=== PATIENT | female | born 1940 | race Caucasian/White ===

== ENCOUNTER 2018-03-19 05:27 | Day surgery (SDC) | payer OTHER ==
[~2018-03-19] VITALS: Ht 157.5 cm; Wt 49.9 kg
--- NOTE | ~2018-03-19 | O ---
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 PROCEDURE: Evisceration of right eye with implantation of 18-mm Medpor sphere, conjunctivoplasty and temporary tarsorrhaphy. SURGEON: David Monique M.D. LYE BOILER: None. ANESTHESIA: General. COMPLICATIONS: None. 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 She presents today for surgical rehabilitation of the socket. Informed consent was obtained to include but not limited to potential risk for bleeding, infection, and the potential need for further treatment or surgery. DESCRIPTION OF PROCEDURE: The patient was taken to the operating room, where general anesthesia was administered. The right orbit was then anesthetized with Xylocaine with epinephrine mixed with Marcaine and Wydase. The eyelid margin was anesthetized with the same anesthetic mixture. The patient was subsequently prepped and draped in the usual sterile fashion. The left eye was protected with a moistened sponge. A lid speculum was placed on the right eye. A 360-degree conjunctival peritomy was performed. There was more conjunctival scarring noted than had initially been anticipated. The horizontal meridian was especially scarred back to and past the insertion of the horizontal recti. The oblique quadrants were bluntly dissected. A 15 blade was then used to make an incision 90% through the corneoscleral limbus 360 degrees. A Marialuisa scissor was then used to complete this 360 [facility] [address] [place] [address] OPERATIVE REPORT Name: AHMET CEDEÑO Room #: 150-6 [facility]..#: [id number] Admission: 03/19/18 Attend Phys: David Monique MD Discharge: Date of : 38 Report #: [id number] degrees. The corneal cap popped off and attached to the underlying uvea. An evisceration spoon was then used to separate the uvea from the underlying sclera around the entire sphere. The uveal contents were then delivered and passed off the field into a specimen container with the corneal button. The sclera was inspected and all of the uveal tissue visible was scraped out. Monopolar cautery was used to close the vascular entrances into the sclera. The cap was then soaked in antibiotic irrigation solution. The sclera was subsequently opened in an oblique fashion inferonasally and superotemporally and then opened posteriorly. An 18-mm sizing sphere fit the cup well, so an 18-mm Medpor sphere was vacuum aspirated in antibiotic irrigation solution. The Medpor sphere was then reposited into the scleral cap with the aid of an easy glide introducer. The sclera was then closed in that oblique quadrant with multiple interrupted mattress 5-0 Vicryl sutures. The conjunctiva was then undermined extensively to allow conjunctivoplasty to be accomplished. The conjunctival closure was oriented, not directly overlying the scleral closure, so as to not have two incisions overlying each other. Hemostasis was then re-achieved. The conjunctivoplasty was then closed with a running 6-0 Vicryl suture with intermittent locking bites. A medium conformer was placed on the eye. A temporary tarsorrhaphy was then fashioned from a short section of IV tubing and a double armed 5-0 nylon suture passed. Erythromycin was then placed in the socket, following which the Telfa pad was placed followed by 2 eye pads, which were held in place with silk tape and Mastisol. The patient was subsequently transported to the recovery area, having tolerated the procedures well, with no anesthetic or operative complications being noted. By: [id number] David Monique MD /nt
[~2018-03-19 05:27] MED LIST: ASPIR 8181 MG PO; BONIVA150 MG PO; CELEXA10 MG PO; CRESTOR10 MG PO; MOXIFLOXACIN3 ML OPHTHALMIC; OMEGA-31000 M1 PO; POLYMYXIN B/TMP10 ML OPHTHALMIC; TYLENOL EXTRA500 MG PO; UNICOMPLEX M TA1 TA1 PO; ZYRTEC10 M5 PO
[2018-03-19 08:55] VITALS: BP 140/60
== END 2018-03-19 10:15 | disposition home or self-care (01) ==
LOC: TBA 05:27 → OR 05:27
DX: H54.413A Blindness right eye category 3, normal vision left eye (principal); H16.001 Unspecified corneal ulcer, right eye; H11.241 Scarring of conjunctiva, right eye; E78.00 Pure hypercholesterolemia, unspecified; M81.0 Age-related osteoporosis without current pathological fracture; F32.9 Major depressive disorder, single episode, unspecified; F41.9 Anxiety disorder, unspecified; Z90.49 Acquired absence of other specified parts of digestive tract; Z87.891 Personal history of nicotine dependence; Z98.890 Other specified postprocedural states; Z79.899 Other long term (current) drug therapy; Z79.82 Long term (current) use of aspirin; Z88.8 Allergy status to other drugs, medicaments and biological substances
CPT/HCPCS: 50010; 50101; 50386; 50398; 51636; 51854; 53500; 56527; 56528; 70005